=== PATIENT | female | born 1995 | race Hispanic/Latino ===

== ENCOUNTER 2019-07-16 07:57 | Outpatient (CLI) | payer BC ==
--- NOTE | 2019-07-16 09:11 | CT ---
ABDOMEN CT WITH AND WITHOUT CONTRAST PELVIC CT WITH AND WITHOUT CONTRAST: HISTORY: Microscopic hematuria. COMPARISON: None. TECHNIQUE: Abdomen and pelvic CT is performed with and without contrast following urogram protocol. Coronal refo rmatted images are submitted for interpretation. FINDINGS: Lung bases: Clear. Heart: Normal heart size. No pericardial effusion. Aorta: Normal caliber aorta. No periaortic fat stranding. Liver: Diffuse hypoattenuation suggesting hepatic steatosis. There are no hepatic masses. There is a focal subcapsular hypodensity measuring 1.2 x 1.2 cm compatible with a small focus of perihepatic fat, of doubtful clinical significance. Spleen: Appropriate enhancement. Pancreas: Appropriate enhancement. Adrenal glands: Symmetric enhancement. Lymph nodes: No gastrohepatic, retrocrural or periportal lymphadenopathy. Portal vein: Patent. Gallbladder: Unremarkable. Kidneys: Noncontrast: Bilaterally no hydronephrosis, nephrolithiasis or perinephric fat stranding. Bilateral u reters have a normal caliber. No hydroureter, periureteral fast stranding, or ureterolithiasis. Contrast: Symmetric enhancement of the kidneys. There are no enhancing masses. Delayed: Symmetric excretion into a decompressed intra- and extrarenal collecting system. No filling defects. Mesentery: No mass, nephropathy, free air or free fluid. Alimentary canal: Limited evaluation due to lack of oral contrast administration. No evidence of deanna l obstruction. The ileocecal junction is normal. Normal caliber appendix. Scattered fecal material in a nondistended/nondilated colon. CT PELVIS: Reproductive organs and pelvis: Uterus and right adnexa are unremarkable. Well-circumscribed hypodens e mass in the left ovary measures 2.4 x 2.4 cm compatible with a complex left ovarian cyst. Urinary bladder: No obvious mucosal abnormality. Note, delayed images showing contrast in the bladder are not provided. There is a faint amount of contrast in the dependent portion of the urinary bladder on the delayed images. No lytic or blastic lesions in the osseous structures. IMPRESSION: 1. No evidence of nephrolithiasis or ureterolithiasis. No evidence of obstructive uropathy. 2. Symmetric enhancement of the kidneys. 3. No filling defect in the opacified intrarenal and extrarenal collecting systems. 4. Left adnexal cyst, complex. Transcribed Date/Time: 07/16/2019 9:21 AM
== END 2019-07-16 07:58 | disposition home or self-care (01) ==
LOC: SCSCT 07:57
PROVIDERS: ATTEND Urology
DX: R31.29 Other microscopic hematuria (principal); N39.0 Urinary tract infection, site not specified; R39.15 Urgency of urination; N89.8 Other specified noninflammatory disorders of vagina
CPT/HCPCS: 74178

== ENCOUNTER 2021-07-03 15:38 | Outpatient (CLI) | payer BC | END 2021-07-03 15:39 | disposition home or self-care (01) | LOC: DTY/OP 15:38 | PROVIDERS: ATTEND Family Medicine | DX: E66.9 Obesity, unspecified (principal) | CPT/HCPCS: 97802 ==